=== PATIENT | female | born 1985 | race Native Hawaiian/Other Pacific Islander ===

== ENCOUNTER 2024-02-18 12:10 | Emergency (ER) | payer OTHER ==
[2024-02-18 12:39] VITALS: BP 136/83; O2SAT 100
--- NOTE | 2024-02-18 12:47 | ED Physician Documentation ---
PD HPI SKIN - Stated complaint Stated Complaint: R FINGER/PINKY LAC - Chief complaint Chief Complaint: Laceration - Additional information Additional information: 38-year-old female presents emergency department for right pinky finger lacerat ion. Patient says that she is making lunch and her finger excellently got to the knife. Bleeding for the most heart is well-controlled there is still some slight oozing. She is not sure if she recently had her tetanus shot. Laceration is at the tip of her finger she has full range of motion there does not appear to be any tendon involvement. PD PAST MEDICAL HISTORY - Past Medical History Past Medical History: No - Past Surgical History Past Surgical History: No - Present Medications Home Medications: Ambulatory Orders Medication Instructions Recorded Confirmed Non Formulary 1 each PO QD 02/18/24 02/18/24 - Allergies Allergies/Adverse Reactions: Allergies Allergy/AdvReac Type Severity Reaction Status Date / Time No Known Drug Allergies Allergy Verified 02/18/24 12:35 - Social History Does the pt smoke?: No Smoking Status: Never smoker Does the pt drink ETOH?: No Does the pt have substance abuse?: No PD ED PE NORMAL - Vitals Vital signs reviewed: Yes - General General: Alert and oriented X 3, No acute distress, Well developed/nourished - Derm Derm: Other (1cm laceration to tip of right pink finger, no bone or nail involvment with oozing bleeding) Results - Vitals Vitals: Vital Signs - 24 hr 02/18/24 02/18/24 12:31 13:08 Temperature 36.2 C L Heart Rate 95 Respiratory 151 H 16 Rate Blood Pressure 136/83 H O2 Saturation 100 Oxygen O2 Source Room air Procedures - Laceration (location) right pinky finger Length in cm: 1 Wound type: Linear, Flap, Clean Neurovascular status: Sensory intact, Motor intact, Vascular intact Anesthesia: Lidocaine 1% Wound preparation: Irrigated copiously NS, Wound explored, To the base Skin layer closure: Dermabond Other: Patient tolerated well, No complications, Neurovascular intact, Tetanus booster given PD Medical Decision Making - ED course ED course: Wound inspected under direct bright light with good visualization. Area with linear laceration across soft tissue through adipose without exposure of muscle belly or tendon. No overt foreign body. Area hemostatic. Neurovascular exam congruent with above. Area extensively irrigated with sterile normal saline under pressure. Laceration repaired in simple fashion with glue (please see procedure note for further details). Patient tolerated procedure well and neurovascular exam intact and unchanged post repair with intact distal pulses and cap refill. Cautious return precautions discussed w/ full understanding. Wound care discussed. Departure - Departure Disposition: 01 Home, Self Care Clinical Impression: Laceration of finger Qualifiers: Encounter type: initial encounter Finger: little finger Damage to nail status: without damage Foreign body presence: without foreign body Laterality: right Qualified Code(s): S61.216A - Laceration without foreign body of right little finger without damage to nail, initial encounter Instructions: ED Laceration Hand Comments: Thank you for trusting us with your care. We have placed a small layer of glue over the laceration to your right pinky. As we discussed keep that area as dry as possible and protected as possible to keep the glue on for at least 7 to 10 days. If it falls off earlier there is no need to report back to the emergency department you are wound will just heal by secondary intention. If you start to notice any signs or symptoms of infection which includes worsening swelling, purulent drainage yellow/green, fevers or chills please present back to the emergency department and remove the glue from your finger. Forms: PCP List Discharge Date/Time: 02/18/24 13:11
[2024-02-18] MEDS: TETANUS/DIPHTHERIA/PERTUSSIS 0.5 ML SYRINGE IM ONE (13:00)
== END 2024-02-18 13:11 | disposition home or self-care (01) ==
LOC: ED 12:10
DX: S61.216A Laceration without foreign body of right little finger without damage to nail, initial encounter (principal); W26.0XXA Contact with knife, initial encounter; Y93.G1 Activity, food preparation and clean up; Z23 Encounter for immunization
CPT/HCPCS: 12001; 90471; 99283